=== PATIENT | male | born 1990 | race Caucasian/White ===

== ENCOUNTER 2016-07-25 11:02 | Emergency (ER) | payer MEDICAID ==
[~2016-07-25] VITALS: Ht 170.2 cm; Wt 72.7 kg
[2016-07-25] MEDS ORDERED: IBUPROFEN 800 MG TABLET PO ONE (13:00)
[2016-07-25] MEDS ORDERED: MECLIZINE HCL 25 MG TABLET PO ONE (13:00)
[2016-07-25 13:34] VITALS: BP 111/66
== END 2016-07-25 14:00 | disposition home or self-care (01) ==
LOC: EMS 11:06
DX: H60.92 Unspecified otitis externa, left ear (principal)
CPT/HCPCS: 99283

== ENCOUNTER 2018-06-13 13:07 | Emergency (ER) | payer MEDICAID ==
[~2018-06-13] VITALS: Ht 167.6 cm; Wt 63.6 kg
[2018-06-13] MEDS ORDERED: HYDROCODONE/ACETAMINOPHEN 10-325 MG TABLET PO ONE (13:45)
[2018-06-13] MEDS ORDERED: BACITRACIN 0.9 GM PACKET OINTMENT TP ONE (16:30)
[2018-06-13 16:52] VITALS: BP 126/74
== END 2018-06-13 16:54 | disposition home or self-care (01) ==
LOC: EMS 13:08
DX: S71.112A Laceration without foreign body, left thigh, initial encounter (principal); W45.8XXA Other foreign body or object entering through skin, initial encounter; Y93.89 Activity, other specified; Y92.89 Other specified places as the place of occurrence of the external cause; Y99.8 Other external cause status
CPT/HCPCS: 12002